=== PATIENT | male | born 1965 | race Caucasian/White ===

== ENCOUNTER 2017-03-09 16:17 | Emergency (ER) | END 2017-03-09 18:11 | disposition home or self-care (01) ==

== ENCOUNTER 2018-08-30 11:59 | Observation (INO) | payer OTHER ==
[~2018-08-30] VITALS: Ht 195.6 cm; Wt 90.3 kg
[~2018-08-30 11:59] MED LIST: CEPH-443 PO; SULF1TAB31 PO
--- NOTE | 2018-08-30 13:00 | EN ---
Date/Time of Note Date/Time of Note DATE: 08/30/18 TIME: 12:57 ER Progress Note 54-year-old male with history of MA and quadruple bypass presents with cellulitis. He was bitten by bugs 4 weeks ago and has since noticed multiple wounds to his bilateral upper and lower extremities. Started to notice increasing redness and swelling to his right lower extremity with subjective fevers a few days ago. Physical exam, patient has significant cellulitis of his right lower extremity concerning for MRSA cellulitis, patient warrants further work-up and likely IV antibiotics. Patient will be seen by another provider, likely in the ED main side. AFRICA CORDON PA-C Aug 30, 2018 13:00
[2018-08-30] MEDS ORDERED: VANCOMYCIN 1 GM (PMX) 250 ML IVPB ONE (13:30)
--- NOTE | 2018-08-30 14:28 | ERD ---
ER Documentation Chief Complaint Chief Complaint "spider bites", rle pain, denies trauma HPI 53-year-old male presents to the emergency department complaining of redness and swelling in his right lower extremity. Patient states that approximate 4 weeks ago he thinks he was bit by a spider. Since then he has had multiple areas of splotchy red infected sites. Most recently, he developed 2 lesions on his right lower extremity and began having increasing redness and swelling and pain in that area. He reports a low-grade fever at home. He reports no numbness, tingling, loss of function. ROS All systems reviewed and are negative except as per history of present illness. Medications Home Meds Discontinued Scripts Cephalexin* (Keflex*) 500 Mg Capsule, 500 MG PO QID for 10 Days, CAP Prov:RAMOS DUGAN PA-C 03/09/17 Sulfamethoxazole/Trimethoprim* (Bactrim Ds* Tablet) 1 Each Tablet, 1 TAB PO BID, #20 TAB Prov:RAMOS DUGAN PA-C 03/09/17 Allergies Allergies: Coded Allergies: codeine (Unverified Allergy, Unknown, 08/30/18) PMhx/Soc Hx Substance Use: Yes FmHx Noncontributory for chief complaint Physical Exam Vitals Vital Signs Date Temp Pulse Resp B/P (MAP) Pulse Ox O2 O2 Flow FiO2 Time Delivery Rate 08/30/18 97.5 119 20 122/72 99 12:01 (89) Physical Exam GENERAL: The patient is well developed and appropriate for usual state of health in no apparent distress HEENT: Pupils equal, round, and reactive to light. EOMI. There is no scleral icterus. NECK: C-spine is soft and supple, there is no meningismus. There is no cervical lymphadenopathy. LUNGS: Clear to auscultation bilaterally. There are no rales, wheezes or rhonchi. HEART: Regular rate and rhythm, no murmurs, clicks, rubs or gallops. ABDOMEN: Soft, non-tender, non-distended. There are bowel sounds in all four quadrants. No rebound or guarding. EXTREMITIES: There is no peripheral cyanosis or edema. No focal swelling or erythema. NEURO: The patient moves all four extremities with 5/5 strength. Cranial nerves II - XII are intact. Normal gait. Alert and oriented SKIN: Multiple lesions noted on the lower extremities as well as the upper extremities. The right lower extremity is a significant cellulitis. There is no abscess or crepitus noted. HEME/LYMPHATIC: There is no evidence of excessive bruising or lymphedema. PSYCHIATRIC: The patient does not appear anxious or depressed. Result Diagram: 08/30/18 1341 08/30/18 1341 Results 24 hrs Laboratory Tests Test 08/30/18 13:41 08/30/18 13:51 White Blood Count 31.7 10^3/ul Red Blood Count 5.00 10^6/ul Hemoglobin 14.6 g/dl Hematocrit 44.1 % Mean Corpuscular Volume 88.2 fl Mean Corpuscular Hemoglobin 29.2 pg Mean Corpuscular Hemoglobin Concent 33.1 g/dl Red Cell Distribution Width 13.3 % Platelet Count 254 10^3/UL Mean Platelet Volume 12.2 fl Immature Granulocytes % 0.800 % Neutrophils % % Lymphocytes % % Monocytes % % Eosinophils % % Basophils % % Nucleated Red Blood Cells % 0.0 /100WBC Immature Granulocytes # 0.240 10^3/ul Neutrophils # 10^3/ul Lymphocytes # 10^3/ul Monocytes # 10^3/ul Eosinophils # 10^3/ul Basophils # 10^3/ul Nucleated Red Blood Cells # 10^3/ul Pathologist Review (Hematology) YES Sodium Level 139 mmol/L Potassium Level 3.6 mmol/L Chloride Level 101 mmol/L Carbon Dioxide Level 28 mmol/L Anion Gap 10 Blood Urea Nitrogen 21 mg/dl Creatinine 1.22 mg/dl Est Glomerular Filtrat Rate mL/min > 60 mL/min Glucose Level 121 mg/dl Calcium Level 9.3 mg/dl Total Bilirubin 0.5 mg/dl Direct Bilirubin 0.00 mg/dl Indirect Bilirubin 0.5 mg/dl Aspartate Amino Transf (AST/SGOT) 21 IU/L Alanine Aminotransferase (ALT/SGPT) 23 IU/L Alkaline Phosphatase 91 IU/L Total Protein 7.3 g/dl Albumin 4.0 g/dl Globulin 3.30 g/dl Albumin/Globulin Ratio 1.21 POC Venous Lactate 1.5 mmol/L Current Medications Medications Dose Sig/Greg Start Time Status Last (Trade) Ordered Route PRN Stop Time Admin Dose Reason Admin Vancomycin 250 ml @ ONCE ONCE 08/30/18 08/30/18 HCl 125 mls/hr IVPB 13:30 14:01 08/30/18 15:29 Procedures/MDM Patient was taken to a room, seen and evaluated. Comfort measures were initiated. Diagnostic tests were ordered and reviewed. 3 LEAD RHYTHM STRIP: Normal sinus rhythm without ectopy CONSULTATION: Hospitalist was notified for admission REEVALUATION: 1425: Diagnostic tests were appreciated and arrangements were made for admission to the hospital MEDICAL DECISION MAKIN-year-old male presents the emergency department with what appears to be fairly significant cellulitis. His elevated white blood cell count is concerning. Patient will be admitted to the hospital for IV antibioti cs and further monitoring. Departure Diagnosis: Primary Impression: Cellulitis Condition: HEBER Epps Aug 30, 2018 14:28
[2018-08-30] MEDS ORDERED: ACETAMINOPHEN 325 MG TAB PO PRN (15:30)
[2018-08-30] MEDS ORDERED: ONDANSETRON 4 MG INJ IV PRN (15:30)
[2018-08-30] MEDS ORDERED: ENOXAPARIN 40 MG/0.4 ML SYG SC SCH (15:30)
[2018-08-30] MEDS ORDERED: LIDOCAINE 1% (MPF) 5 ML VIAL SC ONE (15:30)
[2018-08-30] MEDS ORDERED: VANCOMYCIN IV PER PHARMACY XX SCH (15:30)
[2018-08-30] MEDS ORDERED: ACETAMINOPHEN 500 MG TAB PO PRN (15:30)
[2018-08-30] MEDS ORDERED: ZOLPIDEM 5 MG TAB PO PRN (15:30)
[2018-08-30] MEDS ORDERED: VANCOMYCIN 750 MG (PMX) 250 ML IVPB ONE (16:00)
[2018-08-30 17:30] VITALS: BP 114/66; PULSE 80; RESP 20
[2018-08-30 18:21] VITALS: Ht 195.6 cm; Wt 90.3 kg
--- NOTE | 2018-08-30 21:39 | HP ---
DATE OF ADMISSION: 08/30/2018 CHIEF COMPLAINT: Right leg swelling and redness. HISTORY OF PRESENT ILLNESS: This is a 53-year-old male with a history of coronary artery disease, st at[facility] post coronary artery bypass graft in 2014, presents to emergency room with complaint of spider b ites to the right lower extremity about 4 weeks prior to admission. The patient noted 2 discrete les ions. He then began having increasing redness and swelling over the last 2 days prior to admission. The patient also noted numbness and tingling involving the right lower extremity. The patient uses methamphetamine and smokes heroin. He denies any IV drug abuse. He denied skin popping. Initial evaluation revealed diffuse erythema and edema involving the distal right lower extremity fro m the knee down. The white blood cell count was 31,000. PAST MEDICAL HISTORY: 1. Coronary artery disease. 2. History of myocardial infarction times 8. PAST SURGICAL HISTORY: Status post 3-vessel coronary artery bypass grafting in 2014. HOME MEDICATIONS: The list of home medications are not available. SOCIAL HISTORY: The patient lives at home. He admits to using methamphetamine and smoking heroin. He denies IV drug abuse. PHYSICAL EXAMINATION: GENERAL: Well-developed, well-nourished male who is in no apparent distress. VITAL SIGNS: Blood pressure 122/72, heart rate 119, temperature 97.5, pulse oximetry 99%. HEENT: Extraocular muscles intact. Pupils are equal and reactive to light bilaterally. Sclerae are anicteric. Oropharynx is clear and moist. NECK: Supple, no JVD, no carotid bruits. LUNGS: Clear to auscultation bilaterally. CARDIAC: Rapid rate. No murmurs or gallops. ABDOMEN: Soft, nontender, nondistended, normoactive bowel sounds. EXTREMITIES: Right lower extremity with diffuse erythema from the knee down. Two discrete lesions a re noted in different areas of the right distal lower extremity. NEUROLOGICAL: Nonfocal. LABORATORY DATA: WBC 31.7, hemoglobin 14.6, platelet count is 254,000. Basic metabolic panel within normal limits. Lactate is normal at 1.5. ASSESSMENT: A 53-year-old male with right lower extremity cellulitis, presumably due to spider bites several weeks prior to admission. 1. Marked leukocytosis. 1. Coronary artery disease. 2. History of old [place] x8. 3. Status post 3-vessel coronary artery bypass grafting in 2014. 4. History of methamphetamine and heroin abuse. PLAN: 1. Place in med/surg observation, IV vancomycin. Wound culture. 2. PICC line placement. 3. Monitor CBC closely. 4. Continue home medications when the list is available. Dictated By: MILO ROBERTSON/VEE Conf#: [id number] DID#: [id number]
[2018-08-31] MEDS ORDERED: VANCOMYCIN 1 GM 250 ML IVPB SCH (06:00)
--- NOTE | 2018-09-02 03:38 | DS ---
DATE OF ADMISSION: 08/30/2018 DATE OF DISCHARGE: 08/30/2018 DISCHARGE DIAGNOSES: 1. Right lower extremity cellulitis. 2. Marked leukocytosis. 3. Coronary artery disease. 4. History of old myocardial infarction. 5. Status post coronary artery bypass graft. 6. History of methamphetamine and heroin abuse. HOSPITAL COURSE: A 53-year-old male with multiple medical problems and a long history of polysubstan ce abuse including methamphetamine and heroin, presented to emergency room with extensive right lower extremity cellulitis and associated leukocytosis. The patient was started on IV vancomycin and the wound cultures were ordered. He decided to sign out against medical advice. The patient did not all ow for his cigarette to be confiscated. I notified the [facility] and asked them to arrange immed iate followup with primary care provider. Dictated By: MILO ROBERTSON/VEE Conf#: [id number] DID#: [id number]
== END 2018-08-30 21:30 | disposition left against medical advice (07) ==
LOC: E/R 11:59 → PP2 15:11
PROVIDERS: ADMIT Internal Medicine; ATTEND Internal Medicine
DX: L03.115 Cellulitis of right lower limb (principal); D72.829 Elevated white blood cell count, unspecified; I25.10 Atherosclerotic heart disease of native coronary artery without angina pectoris; F19.10 Other psychoactive substance abuse, uncomplicated; I25.2 Old myocardial infarction; F17.210 Nicotine dependence, cigarettes, uncomplicated; Z53.21 Procedure and treatment not carried out due to patient leaving prior to being seen by health care provider
CPT/HCPCS: 71045; 80053; 83605; 85025; 87040; 96374; J3370; Z7500; Z7502; Z7610; G0378